=== PATIENT | female | born 1995 | race Caucasian/White ===

== ENCOUNTER 2018-11-22 18:23 | Observation (INO) | payer MEDICAID ==
[~2018-11-22] VITALS: Ht 168.9 cm; Wt 70.3 kg
[2018-11-22 18:36] VITALS: BP 109/67
--- NOTE | 2018-11-22 18:43 | NUR ---
PT WHEELCHAIRED TO LABOR AND DELIVERY, REPORT CALLED TO NURSE
[2018-11-22 19:56] VITALS: BP 105/68
== END 2018-11-22 20:50 | disposition home or self-care (01) ==
LOC: MED 18:23 → MLD 18:50
PROVIDERS: ADMIT Obstetrics & Gynecology; ATTEND Obstetrics & Gynecology
DX: O26.892 Other specified pregnancy related conditions, second trimester (principal); R10.13 Epigastric pain; O99.89 Other specified diseases and conditions complicating pregnancy, childbirth and the puerperium; M25.519 Pain in unspecified shoulder; Z3A.22 22 weeks gestation of pregnancy
CPT/HCPCS: 99281; G0378